=== PATIENT | male | born 1975 | race Caucasian/White ===

== ENCOUNTER 2025-01-08 07:53 | Emergency (ER) | payer BC | END 2025-01-08 09:01 | LOC: ERS 07:53 | DX: Z76.0 Encounter for issue of repeat prescription (principal); I10 Essential (primary) hypertension; F17.210 Nicotine dependence, cigarettes, uncomplicated; F17.290 Nicotine dependence, other tobacco product, uncomplicated; Z79.899 Other long term (current) drug therapy | CPT/HCPCS: 99281 ==

== ENCOUNTER 2025-01-12 06:19 | Emergency (ER) | payer BC, OTHER ==
[2025-01-12] MEDS ORDERED: Buprenorphine 8mg/Naloxone 2mg per 1 FILM ONE (07:10)
[2025-01-12] MEDS ORDERED: Ondansetron PF 4 MG/2 ML Vial ONE (07:10)
[2025-01-12] MEDS ORDERED: Buprenorphine HCl 2 MG SL TAB ONE (07:13)
[2025-01-12 07:36] LABS: #Basophils Less than 0.03 10x3/uL (0.0-0.2); #Eosinophils 0.15 10x3/uL (0.0-0.7); #Monocytes 0.33 10x3/uL (0.11-0.59); #Neutrophils 2.96 10x3/uL (1.40-6.50); %Basophils 0.4 % (0.0-1.0); %Eosinophils 3.1 % (0.0-10.0); %Lymphocytes 29.0 % (21.0-51.0); %Monocytes 6.7 % (0.0-10.0); %Neutrophils 60.6 % (42.0-75.0); Hematocrit 42.3 % (42.0-52.0); Hemoglobin 13.7 g/dL (14.0-18.0); Mean Corpuscular Hemoglobin 27.4 pg (27.0-31.0); Mean Corpuscular Volume 84.6 fL (78.0-98.0); Platelet Count 261 10x3/uL (130-400); Red Blood Cell (RBC) Count 5.00 mill/uL (4.70-6.10); White Blood Cell (WBC) Count 4.89 10x3/uL (4.8-10.8)
[2025-01-12 07:56] LABS: ALT (SGPT) 17 U/L (Less than 45); AST (SGOT) 32 U/L (11-34); Albumin 4.4 g/dL (3.1-4.5); Alkaline Phosphatase 102 U/L (40-110); Anion Gap 12 mmol/L (10-20); BUN (Urea Nitrogen) 14 mg/dL (8.9-20.6); Bilirubin, Total 1.2 mg/dL (0.3-1.2); Calc. Creatinine Clearance 0 mL/min (70-130); Calcium 9.4 mg/dL (7.8-10.44); Carbon Dioxide 27 mmol/L (22-29); Chloride 106 mmol/L (98-107); Globulin 3.1 g/dL (2.4-3.5); Glucose 95 mg/dL (70-105); Lipase 18 U/L (8-78); Potassium 3.9 mmol/L (3.5-5.1); Sodium 141 mmol/L (136-145)
[2025-01-12 08:07] LABS: Bacteria/HPF None Seen HPF (None Seen); CAUTI Indications for Culture Pelvic or flank pain; Glucose, Urine (Dipstick) Normal (Negative); Leukocyte Negative Leu/uL (Negative); Protein, Urine (Dipstick) Negative (Neg-Trace); RBC/HPF 0-3 HPF (0-3); Specific Gravity, Urine 1.027 (1.002-1.036); WBC/HPF 0-3 HPF (0-3)
[2025-01-12 08:14] LABS: Urine Culture Reflex No No
[2025-01-12] MEDS ORDERED: Pantoprazole 40 MG DR.TAB ONE (09:07)
== END 2025-01-12 09:10 | disposition home or self-care (01) ==
LOC: ERS 06:19
DX: F11.23 Opioid dependence with withdrawal (principal); F41.9 Anxiety disorder, unspecified; R11.2 Nausea with vomiting, unspecified; I10 Essential (primary) hypertension; F17.210 Nicotine dependence, cigarettes, uncomplicated; F17.290 Nicotine dependence, other tobacco product, uncomplicated; Z79.899 Other long term (current) drug therapy
CPT/HCPCS: 80053; 81001; 83690; 85025; 96374; J0571; J2405

== ENCOUNTER 2025-01-25 10:47 | Emergency (ER) | payer OTHER ==
[2025-01-25] MEDS ORDERED: Buprenorphine 8mg/Naloxone 2mg per 1 FILM ONE (11:14)
== END 2025-01-25 12:14 | disposition home or self-care (01) ==
LOC: ERS 10:47
DX: Z76.0 Encounter for issue of repeat prescription (principal); F11.20 Opioid dependence, uncomplicated; I10 Essential (primary) hypertension; F17.210 Nicotine dependence, cigarettes, uncomplicated; F17.290 Nicotine dependence, other tobacco product, uncomplicated
CPT/HCPCS: 99281